=== PATIENT | female | born 1950 | race Caucasian/White ===

== ENCOUNTER 2017-02-16 16:26 | Emergency (ER) | payer MEDICARE, MEDICAID ==
[~2017-02-16] VITALS: Ht 162.6 cm; Wt 49.0 kg
[~2017-02-16 16:26] MED LIST: ACET1TAB12; ALD50; CYCL5TAB10; DICL25TA2; FURO-151; HYDR-522; IBUP100O15 PO; LACT10SO32; LETR2.5T3; PENI250T2 PO; ZOLP10TA2; [UNRECOGNIZED DRUG - CODE]
[2017-02-16] MEDS ORDERED: MORPHINE SULFATE 4 MG/ML CPJ (NOT FOR IM USE) IV NR (17:45)
[2017-02-16] MEDS ORDERED: SODIUM CHLORIDE 0.9% 1,000 ML IV ONE (22:45)
[2017-02-16] MEDS ORDERED: KETOROLAC 15MG/ML VIAL IV ONE (22:45)
[2017-02-16] MEDS ORDERED: TRAMADOL 50MG TABLET PO ONE (22:45)
[2017-02-17] MEDS ORDERED: ACETAMINOPHEN 650MG/20.3ML UDC PO ONE (00:45)
[2017-02-17 00:49] VITALS: BP 148/82
== END 2017-02-17 00:51 | disposition home or self-care (01) ==
LOC: ER 17:05
DX: S20.212A Contusion of left front wall of thorax, initial encounter (principal); X58.XXXA Exposure to other specified factors, initial encounter; Y93.89 Activity, other specified; Y99.8 Other external cause status; Y92.89 Other specified places as the place of occurrence of the external cause; I10 Essential (primary) hypertension; M19.90 Unspecified osteoarthritis, unspecified site; Z79.899 Other long term (current) drug therapy
CPT/HCPCS: 71101; 96361; 96374; 99285; J1885; J2270; J7030